=== PATIENT | female | born 1990 | race Caucasian/White ===

== ENCOUNTER → 2023-12-31 17:52 | Outpatient (REF) | payer BC, SELFPAY ==
[2023-12-31 20:53] LABS: % Basophils 0.6 % (0-2); % Eosinophils 3.2 % (0-6); % Immature Granulocytes 0.4 % (0-0.5); % Lymphocytes 26.9 % (20.5-51.1); % Monocytes 8.6 % (1.7-9.3); % Neutrophils 60.3 % (42.2-75.2); Absolute Basophils 0.1 10^3/uL (0-0.2); Absolute Eosinophils 0.3 10^3/uL (0-0.7); Absolute Lymphocytes 2.1 10^3/uL (1.2-3.4); Absolute Monocytes 0.7 10^3/uL (0.1-0.6); Absolute Neutrophils 4.7 10^3/uL (1.4-6.5); Hematocrit 42.3 % (37.0-47.0); Hemoglobin 13.6 g/dL (12.0-16.0); Mean Corp Hgb Conc. 32.2 g/dL (33.0-37.0); Mean Corpuscular Hgb 27.7 pg (27.0-31.0); Mean Corpuscular Volume 86.2 fL (81.0-99.0); Mean Platelet Volume 10.7 fL (7.4-10.4); Nucleated Red Blood Cells % 0 %; Platelet Count 412 10^3/uL (130-400); Red Blood Cell Count 4.91 10^6/uL (4.20-5.40); Red Cell Dist. Width 14.2 % (11.5-14.5); White Blood Cell Count 7.8 10^3/uL (4.8-10.8)
[2023-12-31 21:05] LABS: ALT (SGPT) 19 U/L (0-35); AST (SGOT) 26 U/L (14-36); Albumin 4.3 g/dl (3.5-5.0); Alkaline Phosphatase 105 U/L (38-126); Blood Urea Nitrogen 12 mg/dl (7-17); Calcium 9.3 mg/dl (8.4-10.2); Carbon Dioxide 24 mmol/L (22-30); Chloride 102 mmol/L (98-107); Glucose 98 mg/dl (70-99); Potassium 4.9 mmol/L (3.5-5.1); Sodium 135 mmol/L (135-145); Total Bilirubin 0.3 mg/dl (0.2-1.3); eGFR > 60.00
[2023-12-31 21:23] LABS: FSH 9.6 mIU/ml; Luteinizing Hormone 4.28 mIU/ml; Progesterone 0.34 ng/ml; Prolactin 10.8 ng/ml (3.0-18.6)
[2023-12-31 21:37] LABS: TSH Reflex To Free T4 2.05 uIU/ml (0.47-4.68)
== END ==
LOC: CLAB 17:52
PROVIDERS: ATTENDING PHYSICIAN Student in an Organized Health Care Education/Training Program
DX: N93.9 Abnormal uterine and vaginal bleeding, unspecified (principal)
CPT/HCPCS: 80053; 82671; 83001; 83002; 84144; 84146; 84443; 85025

== ENCOUNTER 2024-01-19 18:35 | Emergency (ER) | payer BC, SELFPAY ==
[2024-01-19 18:36] VITALS: BP 173/106
[2024-01-19 18:55] LABS: % Basophils 0.6 % (0-2); % Eosinophils 3.2 % (0-6); % Immature Granulocytes 0.5 % (0-0.5); % Monocytes 6.8 % (1.7-9.3); % Neutrophils 59.9 % (42.2-75.2); Absolute Basophils 0.1 10^3/uL (0-0.2); Absolute Eosinophils 0.3 10^3/uL (0-0.7); Absolute Immature Granulocytes 0.1 10^3/uL (0-0.05); Absolute Lymphocytes 3.1 10^3/uL (1.2-3.4); Absolute Monocytes 0.7 10^3/uL (0.1-0.6); Absolute Neutrophils 6.3 10^3/uL (1.4-6.5); Hematocrit 36.3 % (37.0-47.0); Hemoglobin 12.4 g/dL (12.0-16.0); Mean Corp Hgb Conc. 34.2 g/dL (33.0-37.0); Mean Corpuscular Hgb 27.7 pg (27.0-31.0); Mean Platelet Volume 9.9 fL (7.4-10.4); Nucleated Red Blood Cells % 0 %; Platelet Count 382 10^3/uL (130-400); Red Blood Cell Count 4.48 10^6/uL (4.20-5.40); Red Cell Dist. Width 13.8 % (11.5-14.5); White Blood Cell Count 10.6 10^3/uL (4.8-10.8)
[2024-01-19 19:11] LABS: HCG, Serum Qualitative Screen Negative
[2024-01-19 19:15] LABS: ALT (SGPT) 16 U/L (0-35); AST (SGOT) 22 U/L (14-36); Albumin 4.5 g/dl (3.5-5.0); Alkaline Phosphatase 85 U/L (38-126); Blood Urea Nitrogen 7 mg/dl (7-17); Calcium 9.4 mg/dl (8.4-10.2); Carbon Dioxide 27 mmol/L (22-30); Chloride 103 mmol/L (98-107); Glucose 115 mg/dl (70-99); Potassium 4.4 mmol/L (3.5-5.1); Sodium 139 mmol/L (135-145); Total Bilirubin 0.4 mg/dl (0.2-1.3); Total Protein 6.9 g/dl (6.3-8.2); eGFR > 60.00
[2024-01-19 20:24] VITALS: BMI 40.8
[2024-01-19 20:36] VITALS: BP 131/79
--- NOTE | 2024-01-19 20:54 | ED.GENMED ---
History of Present Illness
General
Chief Complaint: Vaginal Bleeding
Source: patient
Exam Limitations: none
Time Seen by Provider: 01/19/24 20:21
History of Present Illness
History of Present Illness:
This is a 33 year old female that comes in with c/o heavy vaginal bleeding. States that she has been bleeding for 3.5 months. States that she went to her PCP 2 weeks ago and they put her on Progesterone. States that she stopped bleeding for 2 days
and then it started 3 days later very slowly and then in the past 3 days has been very heavy that she is going through a Super tampon and and night pad that she is changing every 15-20 min and she has heavy clots. States that she has abd cramping
and a headache. Denies any fever, chills, chest pain, SOB, nausea, vomiting, diarrhea, dizziness, urinary burning.
Past History
Past History
ED Past Medical History: Hypercholesterolemia, Hypothyroidism and Other (Frankie's angina, Incompetent Cervix, Cellulitis)
ED Past Surgical History: ( 2), Gynecological (Endometrial polyp removed, ) and Other (abd surgery, exploratory neck surgery for Frankie's angina)
Social History
Tobacco: Former smoker
Alcohol: Occasional
Personal:
Living: with family
Review of Systems
Review of Systems
All Other Systems: ROS reviewed and negative except as documented in HPI and ROS
Constitutional: Reports no symptoms; Denies fever or chills
EENT: Reports no symptoms
Respiratory: Reports no symptoms; Denies cough or trouble breathing
Cardiac: Reports no symptoms; Denies chest pain
ABD/GI: Reports abdominal pain (Cramping); Denies nausea, vomiting or diarrhea
: Reports bleeding (Heavy vaginal bleeding); Denies dysuria, frequency or urgency
Musculoskeletal: Reports no symptoms
Skin: Reports no symptoms
Neurological: Reports headache; Denies dizzy
Psychiatric: Reports no symptoms
Phy Exam
General Physical Exam
General Presentation: well appearing and no apparent distress
General age: appears stated age
General Skin: warm and dry
General Habitus: normal
General Mental: alert
General Hydration: appears well hydrated
ENT Exam
ENT Exam: TM's normal, pharynx normal and neck supple
Eye Exam
Eye Exam: EOMI
Cardiovascular Exam
Cardiovascular Exam: regular rate/rhythm, no edema, no murmur and normal peripheral pulses
Pulmonary Exam
Pulmonary Exam: lungs clear, no respiratory distress, no rales, chest non tender, no crackles, no rhonchi, no wheezing and no cough
Gastrointestinal Exam
Gastrointestinal Exam: normal bowel sounds, non tender, soft, no organomegaly, no pulsatile mass, non distended and other (Obese)
Genitourinary Exam Female
Vaginal Bleeding: moderate
Musculoskeletal Exam
Musculoskeletal Exam: full ROM and no edema
Skin Exam
Skin Exam: normal color, warm/dry, no rash and no petechia
Psychiatric Exam
Psychiatric Exam: normal mood/affect
Course
Orders/Labs/Results
Orders:
Orders
01/19/24 18:42
Test Result ONCE
01/19/24 18:47
Complete Blood Count/With Diff Urgent
Comprehensive Metabolic Panel Urgent
HCG, Serum Qualitative Screen Urgent
01/19/24 20:34
US Pelvis W Transvag Combined Urgent
Reason For Exam: bleeding for 3.5 months, INCREASING PAST 3 DAYS
Abnormal Lab Results
01/19/24
18:47
Hct 36.3 L %
(37.0-47.0)
Abs Immat Gran (auto) 0.1 H 10^3/uL
(0-0.05)
Absolute Monos (auto) 0.7 H 10^3/uL
(0.1-0.6)
Glucose 115 H mg/dl
(70-99)
01/19/24 18:47
01/19/24 18:47
glucose nonfasting, Otherwise normal labs, HCG negative,
Vital Signs
Initial and Last Documented VS:
Initial Vital Signs
Temp Pulse Resp BP Pulse Ox
98.1 F 97 16 173/106 98
01/19/24 18:36 01/19/24 18:36 01/19/24 18:36 01/19/24 18:36 01/19/24 18:36
Last Documented Vital Signs
Temp Pulse Resp BP Pulse Ox
98.1 F 84 18 129/84 99
01/19/24 18:36 01/19/24 20:36 01/19/24 20:36 01/19/24 21:00 01/19/24 22:24
MDM/Problems Addressed
Differential Diagnosis Includes:
Menometrorrhagia
MDM/Problems Addressed:
This is a 33 year old female that comes in with c/o heavy vaginal bleeding. States that she has been bleeing for 3.5 months.
Will get labs and check Ultrasound
Back into see patient. Explained that her blood work is normal and that her US is negative for any acute process. Message sent to Dr. Shane and patient is to call the office in the morning and they will get patient in. Patient to return with any
concerns .
Chronic conditions affecting care:
NA
Acute Exacerbation and/or Progression of Chronic Illness:
NA
*Radiology
Radiology exam reviewed: radiology read reviewed (US-The endometrial stripe measures upper limits of normal at 1.4cm. No discrete polyp visualized. Mildly heterogeneous appearance of the uterus without discrete lesion. Unremarkable appearance of the
bilateral adnexa. )
*Pulse Oximetry
Patient hypoxic: no
*EKG
Interpreted by ED Provider?: NA
Rate: EKG- N/A
*Cloth Mender Interpretation
Rate: Cloth Mender- N/A
*Critical Care Note
Total Time (30-74mins, 75-104mins- exclusive of procedures): Not Applicable
ED Attending Note
-
Portions of this chart may have been created with voice recognition software.� Occasional wrong word or��sound alike� substitutions may have occurred due to the inherent limitations of voice recognition software.
Discharge Plan
Departure
Patient Disposition: Home (Routine Discharge)
Date of Disposition: 01/19/24
Time of Disposition: 23:14
Patient with high blood pressure during this ER visit?: No
Condition: Good
Covid-19: Not Applicable
Discharge Problem:
Abnormal vaginal bleeding
Instructions: Bleeding Between Periods
Prescriptions:
No Action
PNV cmb#95-ferrous fumarate-FA [] 1 EACH tablet
1 ea PO DAILY
levothyroxine 50 MCG tablet
50 mcg PO DAILY AT 0700
acetaminophen 325 mg Tablet
650 mg PO Q4HPRN PRN (Reason: mild pain) Qty: 30 0RF
ibuprofen 600 mg Tablet
600 mg PO Q6HPRN PRN (Reason: cramps) Qty: 30 0RF
Referrals:
Sirisha Shane MD [Active] - Follow up in 2-3 days
Devon Fu MD, Resident [Family Provider] -
Activity Restrictions/Additional Instructions:
As discussed, your blood work is normal along with your Ultrasound. Please call the [facility] office in the morning and they will get you in for further evaluation. Please increase your water intake to 8-8oz glasses daily. IF YOU HAVE ANY OTHER
CONCERNS PLEASE RETURN TO THE EMERGENCY ROOM
Interventions
Interventions:
*Risk Screen - Suicide Last Done: 01/19/24 20:24
*General Assessment Last Done: 01/19/24 20:24
*Neglect/Abuse Screening Last Done: 01/19/24 20:24
ED- Fall Risk Assessment Last Done: 01/19/24 20:24
*ED COVID-19 Vaccine History Last Done: 01/19/24 20:24
ED-Female Genitourinary Assessment Last Done: 01/19/24 20:28
Discharge Date and Time
Print Language: SCOTTISH
[2024-01-19 21:00] VITALS: BP 129/84
== END 2024-01-19 23:26 | disposition home or self-care (01) ==
LOC: EMR 18:35
PROVIDERS: Emergency Medicine; EMERGENCY PHYSICIAN Emergency Medicine; FAMILY PHYSICIAN Student in an Organized Health Care Education/Training Program
DX: N93.9 Abnormal uterine and vaginal bleeding, unspecified (principal); R51.9 Headache, unspecified; R10.9 Unspecified abdominal pain; E03.9 Hypothyroidism, unspecified; E78.00 Pure hypercholesterolemia, unspecified; Z87.891 Personal history of nicotine dependence; Z88.1 Allergy status to other antibiotic agents
CPT/HCPCS: 99284; 76830; 76856; 80053; 84703; 85025

== ENCOUNTER → 2024-03-12 12:15 | Outpatient (REF) | payer BC, SELFPAY | LOC: CPAP 12:15 | PROVIDERS: ATTENDING PHYSICIAN Obstetrics & Gynecology Gynecology | DX: N93.9 Abnormal uterine and vaginal bleeding, unspecified (principal) | CPT/HCPCS: 88305 ==

== ENCOUNTER → 2024-03-30 16:54 | Outpatient (REF) | payer BC, SELFPAY | LOC: RAD 16:54 | PROVIDERS: ATTENDING PHYSICIAN Physician Assistant Medical | DX: Z04.2 Encounter for examination and observation following work accident (principal) | CPT/HCPCS: 72072 ==

== ENCOUNTER 2024-05-30 15:30 | Emergency (ER) | payer BC, SELFPAY ==
[2024-05-30 15:44] VITALS: BP 141/88
--- NOTE | 2024-05-30 18:42 | ED.GENMED ---
History of Present Illness
General
Chief Complaint: DVT/Possible Blood Clot
Source: patient
Exam Limitations: none
Time Seen by Provider: 05/30/24 16:20
Nursing documentation reviewed up to this point in time: agreed with
History of Present Illness
History of Present Illness:
33-year-old female presenting to the emergency department today with concerns of left-sided calf discomfort over the past few days after a 14-hour flight. Denies any chest pain shortness of breath no history of blood clots not taking estrogen
products.
Past History
Past History
ED Past Medical History: Hypercholesterolemia, Hypothyroidism and Other (Frankie's angina, Incompetent Cervix, Cellulitis)
ED Past Surgical History: ( 2), Gynecological (Endometrial polyp removed, ) and Other (abd surgery, exploratory neck surgery for Frankie's angina)
Social History
Tobacco: Former smoker
Alcohol: Occasional
Personal:
Living: with family
Review of Systems
Review of Systems
Allergies reviewed?: Yes
All Other Systems: ROS reviewed and negative except as documented in HPI and ROS
Phy Exam
Physical Exam
Physical Exam:
GENERAL: Alert , in no apparent distress
EYE: pupils equal and reactive
NECK: Supple, no significant adenopathy.
ENT: o/p clr, mmm.
CARDIAC: Regular rate and rhythm .
LUNGS: Clear breath sounds bilaterally, no acute respiratory distress, no wheezes/rales/rhonchi
ABDOMEN: Soft, without focal tenderness, no r/g, no cvat
NEUROLOGICAL: Alert and oriented, no focal neuro deficits
SKIN: Warm and dry, skin intact.
MUSCULOSKELETAL: No edema, well perfused.
PSYCH: Normal and appropriate interaction.
Course
Orders/Labs/Results
Orders:
Orders
05/30/24 15:49
US Legs, Left [US Periph Venous LOWER Ext LT] Urgent
Comment:
Reason For Exam: pain/recent flight
Vital Signs
Initial and Last Documented VS:
Initial Vital Signs
Temp Pulse Resp BP Pulse Ox
98.1 F 77 16 141/88 97
05/30/24 15:44 05/30/24 15:44 05/30/24 15:44 05/30/24 15:44 05/30/24 15:44
Last Documented Vital Signs
Temp Pulse Resp BP Pulse Ox
98.1 F 77 16 141/88 97
05/30/24 15:44 05/30/24 15:44 05/30/24 15:44 05/30/24 15:44 05/30/24 15:44
MDM/Problems Addressed
MDM/Problems Addressed:
33-year-old female presenting to the emergency department today with concerns of left calf discomfort over the past few days. 14-hour flight. Here vital signs are normal no chest pain or shortness of breath no history of blood clots. Symptoms
seem to be most consistent with a muscle strain considering worse with certain movements of the ankle. Pain isolated to the calf muscle. No redness or warmth no signs of infection. Ultrasound performed that did not show any blood clot. No
evidence of any life-threatening etiology. Advised for close outpatient follow-up return precautions given.
*Critical Care Note
Total Time (30-74mins, 75-104mins- exclusive of procedures): Not Applicable
ED Attending Note
-
Portions of this chart may have been created with voice recognition software.� Occasional wrong word or��sound alike� substitutions may have occurred due to the inherent limitations of voice recognition software.
Discharge Plan
Departure
Patient Disposition: Home (Routine Discharge)
Date of Disposition: 05/30/24
Time of Disposition: 18:42
Patient with high blood pressure during this ER visit?: No
Condition: Good
Covid-19: Not Applicable
Discharge Problem:
Calf pain
Prescriptions:
No Action
PNV cmb#95-ferrous fumarate-FA [] 1 EACH tablet
1 ea PO DAILY
levothyroxine 50 MCG tablet
50 mcg PO DAILY AT 0700
acetaminophen 325 mg Tablet
650 mg PO Q4HPRN PRN (Reason: mild pain) Qty: 30 0RF
ibuprofen 600 mg Tablet
600 mg PO Q6HPRN PRN (Reason: cramps) Qty: 30 0RF
Referrals:
BENJAMÍN WHALEN [Other]
Activity Restrictions/Additional Instructions:
You came to the emergency department today with concerns of leg discomfort. Here you had an ultrasound without signs of DVT. This is likely a soft tissue strain. Please rest and stretch over the next few days. Return to the emergency department
for any worsening, new or concerning symptoms.
Interventions
Interventions:
*Risk Screen - Suicide Last Done: 05/30/24 15:44
*General Assessment Last Done: 05/30/24 15:44
*Neglect/Abuse Screening Last Done: 05/30/24 15:44
Discharge Date and Time
Print Language: SAMI
== END 2024-05-30 19:07 | disposition home or self-care (01) ==
LOC: EMR 15:30
PROVIDERS: EMERGENCY PHYSICIAN Emergency Medicine
DX: M79.605 Pain in left leg (principal); Z87.891 Personal history of nicotine dependence
CPT/HCPCS: 99284; 93971